=== PATIENT | male | born 1965 | race Caucasian/White ===

== ENCOUNTER 2022-03-13 17:51 | Emergency (ER) | payer SELFPAY ==
[~2022-03-13 17:51] MED LIST: CHANTIX1 EACH PO; NAPROSYN500 MG PO; NORCO 7.5-3251 EACH PO; STOOL SOFTENER250 MG PO; ZANTAC 7575 MG PO; ZOFRAN4 MG PO; [UNRECOGNIZED DRUG - OTHER] PO
[2022-03-13] MEDS ORDERED: IBUPROFEN600 MG PO (20:23)
== END 2022-03-13 20:30 | disposition home or self-care (01) ==
LOC: ER1 17:51
DX: S46.912A Strain of unspecified muscle, fascia and tendon at shoulder and upper arm level, left arm, initial encounter (principal); W18.40XA Slipping, tripping and stumbling without falling, unspecified, initial encounter
CPT/HCPCS: 73030; 99283